=== PATIENT | male | born 1980 | race Caucasian/White ===

== ENCOUNTER 2016-09-15 11:35 | Emergency (ER) | payer MEDICARE ==
[2016-09-15 13:02] LABS: HEMOGLOBIN 13.4 gm/dl (14.0-17.5); RED BLOOD COUNT 4.01 M/UL (4.20-5.50); WHITE BLOOD COUNT 13.8 K/UL (4.5-11.0)
[2016-09-15 13:30] LABS: BUN/CREATININE RATIO 18 (0-10)
== END 2016-09-15 22:33 | disposition home or self-care (01) ==
LOC: ER1 11:35
PROVIDERS: Emergency Medicine
DX: R10.84 Generalized abdominal pain (principal); J40 Bronchitis, not specified as acute or chronic; F41.9 Anxiety disorder, unspecified; R11.2 Nausea with vomiting, unspecified; F31.9 Bipolar disorder, unspecified; F17.210 Nicotine dependence, cigarettes, uncomplicated; Z79.899 Other long term (current) drug therapy
CPT/HCPCS: 36415; 71010; 80053; 80307; 82550; 82553; 83605; 83690; 83874; 84484; 85025; 93005; 96374; 96375; 96376; 99285; G0480; J1200; J1630; J2060; J2405; J7050; Q9962

== ENCOUNTER 2016-09-28 14:10 | Emergency (ER) | payer MEDICARE ==
[2016-09-28 15:15] LABS: RED BLOOD COUNT 3.83 M/UL (4.20-5.50); WHITE BLOOD COUNT 13.2 K/UL (4.5-11.0)
[2016-09-28 15:38] LABS: BUN/CREATININE RATIO 9 (0-10)
== END 2016-09-28 21:21 | disposition home or self-care (01) ==
LOC: ER1 14:10
PROVIDERS: Family Medicine
DX: F41.9 Anxiety disorder, unspecified (principal); R10.13 Epigastric pain; R11.2 Nausea with vomiting, unspecified; F31.9 Bipolar disorder, unspecified; F91.9 Conduct disorder, unspecified; F17.200 Nicotine dependence, unspecified, uncomplicated
CPT/HCPCS: 80053; 83605; 83690; 85025; 96372; 96374; 96375; 96376; 99283; J1630; J2060; J2270; J2405; J2550; J3486; J7030; J7050

== ENCOUNTER 2021-06-05 15:42 | Emergency (ER) | payer MEDICARE, OTHER ==
[~2021-06-05 15:42] MED LIST: ATIVAN1 MG PO; GABAPENTIN800 MG PO; NEURONTIN 400400 MG PO; NORFLEX 100 MG100 MG PO; PRILOSEC OTC20 MG PO; VISTARIL25 MG PO; Voltaren Gel 1 % TOP; ZOFRAN ODT 4 MG4 MG SL; ZOFRAN4 MG PO
[2021-06-05 19:21] LABS: HEMOGLOBIN 14.4 gm/dl (14.0-17.5); RED BLOOD COUNT 4.18 M/UL (4.20-5.50)
[2021-06-05 19:40] LABS: BUN/CREATININE RATIO 21 (0-10)
[2021-06-06 15:16] LABS: HEMOGLOBIN 14.7 gm/dl (14.0-17.5); RED BLOOD COUNT 4.25 M/UL (4.20-5.50); WHITE BLOOD COUNT 18.7 K/UL (4.5-11.0)
[2021-06-06 15:49] LABS: BUN/CREATININE RATIO 21 (0-10)
== END 2021-06-07 10:44 ==
LOC: ER1 15:42
PROVIDERS: Family Medicine
DX: R45.88 Nonsuicidal self-harm (principal); F17.210 Nicotine dependence, cigarettes, uncomplicated; F41.9 Anxiety disorder, unspecified; Z88.0 Allergy status to penicillin
CPT/HCPCS: 80053; 83690; 85025; 96372; 96374; 96375; 96376; 99284; J1630; J2060; J2250; J3486

== ENCOUNTER 2021-11-21 17:02 | Emergency (ER) | payer MEDICARE, OTHER ==
[2021-11-21 17:30] LABS: HEMOGLOBIN 14.7 gm/dl (14.0-17.5); RED BLOOD COUNT 4.38 M/UL (4.20-5.50); WHITE BLOOD COUNT 13.3 K/UL (4.5-11.0)
[2021-11-21 17:49] LABS: BUN/CREATININE RATIO 22 (0-10)
== END 2021-11-21 18:08 | disposition home or self-care (01) ==
LOC: ER1 17:02
PROVIDERS: Physician Assistant
DX: F41.9 Anxiety disorder, unspecified (principal); K21.9 Gastro-esophageal reflux disease without esophagitis; Z88.0 Allergy status to penicillin
CPT/HCPCS: 80053; 83690; 85025; 99284